=== PATIENT | male | born 1990 | race Caucasian/White ===

== ENCOUNTER 2016-06-21 11:16 | Emergency (ER) | payer OTHER ==
--- NOTE | 2016-06-21 13:07 | ED ---
General Adult HPI - General Chief complaint: ENT Stated complaint: Severe jaw pain Time Seen by Provider: 06/21/16 12:44 Source: patient, RN notes reviewed Mode of arrival: ambulatory Limitations: no limitations - History of Present Illness Initial comments: Patient is a 26-year-old male significant past medical history for HIV, who presents emergency room today with chief complaint of left-sided jaw pain times one week. Patient admits that she been having some discomfort this past week on left side of the jaw. Patient states he went to the [place] earlier today and felt a "pop" on the left side. Patient states pain is increased. Patient does admit that it's worse when he opens or clenches. Patient admits that he feels a bump in the left lower jaw line. He denies any other complaints or symptoms. Patient denies any recent fever, chills, shortness of breath, chest pain, back pain, abdominal pain, nausea or vomiting, numbness or tingling, dysuria or hematuria, constipation or diarrhea, headaches or visual changes, or any other complaints. - Related Data Home Medications Medication Instructions Recorded Confirmed DULoxetine HCL [Cymbalta] 30 mg PO DAILY 09/09/15 06/21/16 LORazepam [Ativan] 1 mg PO TID 09/09/15 06/21/16 Abacavir/Dolutegravir/Lamivudi 1 tab PO DAILY 06/21/16 06/21/16 [Triumeq Tablet] Previous Rx's Medication Instructions Recorded QUEtiapine [SEROquel] 50 mg PO BID@1400,2100 #14 tab 08/03/15 QUEtiapine [SEROquel] 200 mg PO HS@2100 #14 tab 08/03/15 Clindamycin HCl [Cleocin] 300 mg PO Q6HR 10 Days 06/21/16 Allergies Allergy/AdvReac Type Severity Reaction Status Date / Time amoxicillin trihydrate Allergy Vomiting Verified 06/21/16 11:54 [From Augmentin] Penicillins Allergy Vomiting Verified 06/21/16 11:54 potassium clavulanate Allergy Vomiting Verified 06/21/16 11:54 [From Augmentin] Review of Systems ROS Statement: Those systems with pertinent positive or pertinent negative responses have been documented in the HPI. ROS Other: All systems not noted in ROS Statement are negative. 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 MDRO Source:: blood Past Surgical History: Adenoidectomy, Tonsillectomy Additional Past Surgical History / Comment(s): Pt states that he has had a hernia repair as a child. Past Anesthesia/Blood Transfusion Reactions: No Reported Reaction Past Psychological History: Anxiety, Depression, PTSD, Schizophrenia Additional Psychological History / Comment(s): . Smoking Status: Never smoker Past Alcohol Use History: Rare Additional Past Alcohol Use History / Comment(s): At admission, Pt stated he "doesn't do cocaine; it must have been slipped in my drink while I was at a republic[facility] in [facility]." UDS in was +cocaine. ETOH was neg. Denies other recreational drug use. Upon admission to [facility], pt reports he tried to OD on Vicodin, Tylenol and cocaine because he is depressed and PTSD Past Drug Use History: Cocaine - Past Family History Father History Unknown: Yes Family Medical History: Deep Vein Thrombosis (DVT) Mother Family Medical History: Deep Vein Thrombosis (DVT), Hyperlipidemia, Hypertension General Exam - General Exam Comments Initial Comments: General: The patient is awake and alert, in no distress, and does not appear acutely ill. Eye: Pupils are equal, round and reactive to light, extra-ocular movements are intact. No nystagmus. There is normal conjunctiva bilaterally. No signs of icterus. Ears, nose, mouth and throat: There are moist mucous membranes and no oral lesions. Patient has tenderness over tooth #18. No sign of abscess. Uvula midline. Swallows without difficulty. Patient is able to open close. Does have tenderness over the left TMJ area. Also tender over the left mandible body. Neck: The neck is supple, there is no tenderness or JVD. Cardiovascular: There is a regular rate and rhythm. No murmur, rub or gallop is appreciated. Respiratory: Lungs are clear to auscultation, respirations are non-labored, breath sounds are equal. No wheezes, stridor, rales, or rhonchi. Musculoskeletal: Normal ROM, no tenderness. Strength 5/5. Sensation intact. Pulses equal bilaterally 2+. Neurological: A&O x 3. CN II-XII intact, There are no obvious motor or sensory deficits. Coordination appears grossly intact. Speech is normal. Skin: Skin is warm and dry and no rashes or lesions are noted. Psychiatric: Cooperative, appropriate mood & affect, normal judgment. Limitations: no limitations Course Vital Signs 06/21/16 11:54 Temperature 98.3 F Pulse Rate 90 Respiratory 17 Rate Blood Pressure 113/78 O2 Sat by Pulse 98 Oximetry Medical Decision Making - Medical Decision Making Patient reexamined at this time. Patient does admit some chills. Patient does have some tenderness over tooth #18. His x-rays negative. Patient will be covered with antibiotic to cover for possible dental abscess. He is advised follow-up with dentist as long with his family doctor. Does have penicillin ALLERGY be started on clindamycin. Patient advised return if any symptoms increase or worsen or for any other concerns. Disposition Clinical Impression: Pain, dental Disposition: HOME SELF-CARE Condition: Good Instructions: Dental Abscess (ED) Additional Instructions: Please use medication as discussed. Please follow-up with family doctor/ dentist over the next 2 days. Please return to emergency room if the symptoms increase or worsen or for any other concerns. Prescriptions: Clindamycin HCl [Cleocin] 300 mg PO Q6HR 10 Days Time of Disposition: 14:25
--- NOTE | 2016-06-21 13:40 | XR ---
EXAMINATION TYPE: XR panorex DATE OF EXAM: 06/21/2016 1:35 PM COMPARISON: NONE HISTORY: Pain TECHNIQUE: Panorex view mandible FINDINGS: Mandible is intact. Temporomandibular junction is visualized is normal. The maxilla as visu alized is normal. IMPRESSION: 1. Normal Panorex
[2016-06-21 15:00] VITALS: BP 107/60; PULSE 88; RESP 18; TEMP 98.8
== END 2016-06-21 14:59 | disposition home or self-care (01) ==
LOC: EC 11:16
DX: K08.89 Other specified disorders of teeth and supporting structures (principal); B20 Human immunodeficiency virus [HIV] disease; F41.9 Anxiety disorder, unspecified; F32.9 Major depressive disorder, single episode, unspecified; F20.9 Schizophrenia, unspecified; Z86.14 Personal history of Methicillin resistant Staphylococcus aureus infection; Z79.899 Other long term (current) drug therapy; Z88.0 Allergy status to penicillin
CPT/HCPCS: 36415; 70355; 81381; 86360; 87491; 87536; 87591; 99283

== ENCOUNTER → 2016-06-21 | Outpatient (CLI) | payer OTHER ==
[2016-06-22 14:22] LABS: LOG HIV Copies/mL <1.60 (<1.60)
[2016-06-28 14:18] LABS: Mis test requested (Blood) HLA B5701
== END | disposition home or self-care (01) ==
LOC: LABWHC1 15:04
PROVIDERS: ATTEND Internal Medicine
DX: B20 Human immunodeficiency virus [HIV] disease (principal)
CPT/HCPCS: 36415; 81381; 86360; 87491; 87536; 87591

== ENCOUNTER 2018-02-17 21:03 | Emergency (ER) | payer SELFPAY ==
[2018-02-17 21:13] VITALS: BP 141/89; PULSE 75; RESP 18; TEMP 98.2
[2018-02-17] MEDS ORDERED: SULFAMETH-TMP DS STARTER PACK 2 TAB BTL PO STA (21:59)
--- NOTE | 2018-02-17 22:02 | ED ---
General Adult HPI - General Chief complaint: Skin/Abscess/Foreign Body Stated complaint: Rash Time Seen by Provider: 02/17/18 21:15 Source: patient, RN notes reviewed Mode of arrival: ambulatory Limitations: no limitations - History of Present Illness Initial comments: 27-year-old male with a history of MRSA presents to the emergency department for a chief complaint of rash to the right side of the face x 4 days. Patient states this appears like past MRSA infections. Patient states he has clear yellow fluid draining from the rash. Patient denies any pain in the ear or the eye. Patient states he feels he needs antibiotics. He denies any fevers or chills at home. He denies any neck stiffness. Patient has no other complaints at this time including shortness of breath, chest pain, abdominal pain, nausea or vomiting, headache, or visual changes. - Related Data Home Medications Medication Instructions Recorded Confirmed Abacavir/Dolutegravir/Lamivudi 1 tab PO DAILY 06/21/16 04/26/17 [Triumeq Tablet] Previous Rx's Medication Instructions Recorded Clindamycin HCl [Cleocin] 300 mg PO Q6HR 10 Days cap 06/21/16 ARIPiprazole [Abilify] 5 mg PO HS #14 tablet 04/26/17 Docusate [Colace] 100 mg PO DAILY #30 capsule 04/26/17 Gabapentin [Neurontin] 300 mg PO HS #14 cap 04/26/17 Venlafaxine HCl [Effexor] 75 mg PO HS #14 tab 04/26/17 buPROPion XL [Wellbutrin XL] 150 mg PO DAILY #14 tab.er.24h 04/26/17 hydrOXYzine PAMOATE [Vistaril] 50 mg PO HS PRN #14 cap 04/26/17 rOPINIRole HCL [Requip] 1 mg PO HS #14 tab 04/26/17 Doxycycline Hyclate [Vibramycin] 100 mg PO BID #28 cap 05/06/17 Mupirocin 2% Oint [Bactroban 2% 1 applic TOPICAL TID 5 Days gm 02/17/18 Oint] Sulfamethox-Tmp 800-160Mg [Bactrim 1 tab PO Q12HR #20 tab 02/17/18 DS 800-160 mg] Allergies Allergy/AdvReac Type Severity Reaction Status Date / Time amoxicillin trihydrate Allergy Vomiting Verified 02/17/18 21:13 [From Augmentin] Penicillins Allergy Vomiting Verified 02/17/18 21:13 potassium clavulanate Allergy Vomiting Verified 02/17/18 21:13 [From Augmentin] Review of Systems ROS Statement: Those systems with pertinent positive or pertinent negative responses have been documented in the HPI. ROS Other: All systems not noted in ROS Statement are negative. 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 MDRO Source:: blood Past Surgical History: Adenoidectomy, Tonsillectomy Additional Past Surgical History / Comment(s): Pt states that he has had a hernia repair as a child. Past Anesthesia/Blood Transfusion Reactions: No Reported Reaction Past Psychological History: Anxiety, Depression, PTSD, Schizophrenia Smoking Status: Never smoker Past Alcohol Use History: Rare Past Drug Use History: Cocaine - Past Family History Father History Unknown: Yes Family Medical History: Deep Vein Thrombosis (DVT) Mother Family Medical History: Deep Vein Thrombosis (DVT), Hyperlipidemia, Hypertension General Exam Limitations: no limitations General appearance: alert, in no apparent distress Head exam: Present: atraumatic, normocephalic, normal inspection Eye exam: Present: normal appearance, PERRL, EOMI (No pain with movement of the eye). Absent: scleral icterus, conjunctival injection (No erythema noted of eye ), periorbital swelling, periorbital tenderness (No tenderness around the eye) ENT exam: Present: normal exam, normal oropharynx, mucous membranes moist, TM's normal bilaterally (Normal tympanic membrane bilaterally, no erythema, opacification, or bulging.), normal external ear exam (No pain with percussion of the mastoid process, no pain with movement of the pinna or the tragus), other (Patient has an area about 3 cm x 2 cm on the right side of the face on the cheek that is somewhat open. Appears like a scrape with yellow serous fluid. No spreading or streaking redness.) Neck exam: Present: normal inspection, full ROM. Absent: tenderness, meningismus, lymphadenopathy Respiratory exam: Present: normal lung sounds bilaterally. Absent: respiratory distress, wheezes, rales, rhonchi, stridor Cardiovascular Exam: Present: regular rate, normal rhythm, normal heart sounds. Absent: systolic murmur, diastolic murmur, rubs, gallop, clicks GI/Abdominal exam: Present: soft, normal bowel sounds. Absent: distended, tenderness, guarding, rebound, rigid Neurological exam: Present: alert, oriented X3, CN II-XII intact Psychiatric exam: Present: normal affect, normal mood Course Vital Signs 02/17/18 21:10 Temperature 98.2 F Pulse Rate 75 Respiratory 18 Rate Blood Pressure 141/89 O2 Sat by Pulse 99 Oximetry Medical Decision Making - Medical Decision Making 27-year-old well-appearing male presents to the emergency department for a chief complaint of rash 4 days to the right side of the face. Patient has history of MRSA and states it appeared like this last time. On exam there is a 3 cm x 2 cm area of skin that appears somewhat open with yellow serous fluid. No purulent Drainage. No spreading or streaking redness. No pain with movement of the eye or periorbital swelling. No pain with percussion of the mastoid process or palpation of the tragus or pinna. Tympanic membranes appear within normal limit. Patient is afebrile on presentation to the emergency department With a pulse rate of 75. Fluid was cultured. Patient will be put on Bactrim to cover for MRSA. He was given a starter pack as well as a dose of Bactrim here. Patient was also given a prescription for mupirocin cream as this could be impetigo. Discussed with patient to follow-up with on Monday and he states he is already planning to see his doctor on Monday. Discuss returning immediately to the emergency department if he has any worsening symptoms, pain in the eye, fevers, or any additional concerns. Disposition Clinical Impression: Rash Disposition: HOME SELF-CARE Condition: Fair Instructions: MRSA (Methicillin-Resistant Staphylococcus Aureus) (ED), Impetigo (ED) Additional Instructions: Please take antibiotic and use antibiotic ointment as directed. Please follow- up with primary care in 1-2 days. Return to the emergency department if you have any worsening symptoms. Prescriptions: Mupirocin 2% Oint [Bactroban 2% Oint] 1 applic TOPICAL TID 5 Days gm Sulfamethox-Tmp 800-160Mg [Bactrim DS 800-160 mg] 1 tab PO Q12HR #20 tab Is patient prescribed a controlled substance at d/c from ED?: No Referrals: Dona Molina MD [REFERRING] - 1-2 days Time of Disposition: 22:00
== END 2018-02-17 22:06 | disposition home or self-care (01) ==
LOC: EC 21:03
DX: R21 Rash and other nonspecific skin eruption (principal); Z21 Asymptomatic human immunodeficiency virus [HIV] infection status; Z86.14 Personal history of Methicillin resistant Staphylococcus aureus infection; Z79.899 Other long term (current) drug therapy; Z88.0 Allergy status to penicillin
CPT/HCPCS: 87070; 87077; 87186; 87205; 99283